=== PATIENT | male | born 1970 | race Caucasian/White ===

== ENCOUNTER 2019-09-25 21:55 | Emergency (ER) | payer OTHER ==
[~2019-09-25] VITALS: Ht 170.2 cm; Wt 104.3 kg
--- NOTE | 2019-09-25 22:08 | NUR ---
PT AAOX4. REBEKAH FROM [facility] FOR GLF. PT KHMER SPEAKING C/O LEFT KNEE PAIN DENIES ANY LOC. NO ACUTE DISTRESS NOTED. PT VOMITTED FOOT GATHERER. MD AT BEDSIDE FOR EVAL. AWAITING ORDERS.
--- NOTE | 2019-09-25 22:14 | NUR ---
BG 116 MD AWARE.
[2019-09-25] MEDS ORDERED: IBUPROFEN 400 MG TABLET ONE (22:32)
[2019-09-25] MEDS: IBUPROFEN 400 MG TABLET PO ONE (22:34)
--- NOTE | 2019-09-25 22:47 | NUR ---
Patient is resting comfortably in bed. Easily aroused. VSS.
--- NOTE | 2019-09-25 22:57 | NUR ---
CALLED [id number] FOR TX OF 30MINS REF#[id number]
--- NOTE | 2019-09-25 23:45 | NUR ---
[facility] 0030
--- NOTE | 2019-09-26 00:43 | NUR ---
REPORT GIVEN TO [facility] FOR TRANSPORTATION NARESH
--- NOTE | 2019-09-26 00:45 | NUR ---
SPOKE WITH FRANCESCO CAVANAUGH FOR [facility] AND INFORMED PT IS RETURNING TO FACILITY. VERBALIZED UNDERSTANDING. PT TRANSFERRED TO [facility] IN STABLE CONDITION
[2019-09-26 01:06] VITALS: BP 127/90
[2019-09-26] MEDS ORDERED: PYRI-6 PO (17:19)
[2019-09-26] MEDS ORDERED: BENA20TA9 PO (17:19)
[2019-09-26] MEDS ORDERED: ATOR20TA PO (17:19)
[2019-09-26] MEDS ORDERED: ERTU15TA PO (17:19)
[2019-09-26] MEDS ORDERED: METF-441 PO (17:19)
[2019-09-26] MEDS ORDERED: ASPI-1152 PO (17:19)
[2019-09-26] MEDS ORDERED: CYAN500T65 PO (17:19)
[2019-09-26] MEDS ORDERED: DULA0.75 SQ (17:19)
[2019-09-26] MEDS ORDERED: GLAT40SY3 SQ (17:19)
[2019-09-26] MEDS ORDERED: ERGO500014 PO (17:19)
[2019-09-26] MEDS ORDERED: ACET-73 PO (17:19)
[2019-09-26] MEDS ORDERED: TRAZ-182 PO (17:19)
== END 2019-09-26 01:06 | disposition home or self-care (01) ==
LOC: ER 21:55
DX: S83.8X2A Sprain of other specified parts of left knee, initial encounter (principal); G35 Multiple sclerosis; I10 Essential (primary) hypertension; E78.5 Hyperlipidemia, unspecified; E11.9 Type 2 diabetes mellitus without complications; W18.31XA Fall on same level due to stepping on an object, initial encounter; Y93.01 Activity, walking, marching and hiking; Y92.89 Other specified places as the place of occurrence of the external cause; Y99.8 Other external cause status
CPT/HCPCS: 73564-TC; 82962-TC

== ENCOUNTER 2019-09-26 16:35 | Inpatient (IN) | payer OTHER ==
[~2019-09-26] VITALS: Ht 172.7 cm; Wt 100.7 kg
--- NOTE | 2019-09-26 17:00 | NUR ---
PT TOSHIA MARTÍNEZ FRSilvina [facility] TO ER BED 18. PER EMS REPORT PT WAS SENT HERE FOR FREQUENT FALLS AND ALTERED MENTAL STATUS AND DR MELÉNDEZ WANTS HIM TO BE ADMITTED. PT APPEARS LETHARGIC ASSET MANAGEMENT COORDINATOR. VOMITTER X 1 WHILE BEING TRANFERED. GOWNED AND PLACE ON MONITOR. TACHY ASSET MANAGEMENT COORDINATOR. AFEBRILE. AWAITING MD MCKEON.
[2019-09-26] MEDS ORDERED: PYRI-6 PO (17:19)
[2019-09-26] MEDS ORDERED: BENA20TA9 PO (17:19)
[2019-09-26] MEDS ORDERED: GLAT40SY3 SQ (17:19)
[2019-09-26] MEDS ORDERED: DULA0.75 SQ (17:19)
[2019-09-26] MEDS ORDERED: METF-441 PO (17:19)
[2019-09-26] MEDS ORDERED: ASPI-1152 PO (17:19)
[2019-09-26] MEDS ORDERED: ERTU15TA PO (17:19)
[2019-09-26] MEDS ORDERED: ATOR20TA PO (17:19)
[2019-09-26] MEDS ORDERED: TRAZ-182 PO (17:19)
[2019-09-26] MEDS ORDERED: CYAN500T65 PO (17:19)
[2019-09-26] MEDS ORDERED: ERGO500014 PO (17:19)
[2019-09-26] MEDS ORDERED: ACET-73 PO (17:19)
--- NOTE | 2019-09-26 17:35 | NUR ---
DR ENRIQUEZ AT BEDSIDE FOR EVAL.
[2019-09-26] MEDS ORDERED: ONDANSETRON HCL/PF 4 MG/2 ML VIAL ONE (17:37)
--- NOTE | 2019-09-26 17:41 | NUR ---
IV LINE STARTED BLOOD DRAWN AND SENT TO LAB.
--- NOTE | 2019-09-26 17:55 | NUR ---
PT TO RADIOLOGY FOR HEAD CT SCAN VIA [facility].
[2019-09-26] MEDS ORDERED: IV NS 0.9% 1,000 ML BAG IV ONE ×2 (18:00→20:30)
[2019-09-26] MEDS ORDERED: ONDANSETRON HCL/PF 4 MG/2 ML VIAL IVP ONE (18:00)
[2019-09-26 18:21] LABS: BASOPHILS % (AUTO) 0.4 % (0.0-2.0); HEMATOCRIT 46 % (39-51); HEMOGLOBIN 15.3 g/dL (13.5-17.5); LYMPHOCYTES # (AUTO) 0.6 /CMM (0.8-4.8); LYMPHOCYTES % (AUTO) 6.3 % (20.0-44.0); MEAN CORPUSCULAR HGB CONC 33 g/dl (31.0-36.0); MEAN CORPUSCULAR VOLUME 94 fL (80-96); MONOCYTES # (AUTO) 0.6 /CMM (0.1-1.30); MONOCYTES % (AUTO) 6.5 % (2.0-12.0); NEUTROPHILS # (AUTO) 8.1 /CMM (1.8-8.9); NEUTROPHILS % (AUTO) 86.8 % (43.0-81.0); PLATELET COUNT (AUTO) 247 /CMM (150-450); WHITE BLOOD COUNT (AUTO) 9.3 K/uL (4.3-11.0)
[2019-09-26 18:37] LABS: CARBON DIOXIDE 26 mmol/L (21-32); CHLORIDE 102 mmol/L (98-107); CREATININE 1.1 mg/dL (0.6-1.3); GLUCOSE 130 mg/dL (74-106); POTASSIUM 3.9 mmol/L (3.5-5.1); SODIUM SERUM 138 mmol/L (136-145); UREA NITROGEN, BLOOD 16 mg/dL (7-18)
[2019-09-26 18:38] LABS: CALCIUM, SERUM 8.6 mg/dL (8.5-10.1)
[2019-09-26 18:42] LABS: ALANINE AMINOTRANSFERASE 57 U/L (12-78); ALBUMIN 4.2 g/dL (3.4-5.0); ALKALINE PHOSPHATASE 92 U/L (46-116); ASPARTATE AMINOTRANSFERASE 30 U/L (15-37); BILIRUBIN,DIRECT 0.1 mg/dL (0.0-0.2); BILIRUBIN,TOTAL 0.3 mg/dL (0.2-1.0); TOTAL PROTEIN, SERUM 8.5 g/dL (6.4-8.2)
[2019-09-26 18:56] LABS: SERUM AMMONIA 13 umol/L (11-32)
[2019-09-26 18:59] LABS: THYROID STIMULATING HORMONE 0.643 uIU/mL (0.358-3.74)
--- NOTE | 2019-09-26 19:05 | NUR ---
TOOK OVER PT CARE. PT AAOX4. (NAME, , YEAR, AND PRESIDENT.) PT WAS SEEN AT THE E.D YESTERDAY FOR L KNEE PAIN S/P FALLING. UPON REPORT PT WAS BROUGHT HERE FOR FREQUENT FALLS AND ALTERED MENTAL STATUS. PT PLACED ON MONITOR AND PULSE OX. PT SLIGHTLY TACHY 109-115. VITALS STABLE. SAT 96% ON ROOM AIR. PT DENIES ANY PAIN. PROVIDED WITH BLANKET. PT NOW RESTING COMFORTABLY. NO ACUTE DISTRESS NOTED.
[2019-09-26 19:27] LABS: APPEARANCE,URINE Clear (CLEAR); BILIRUBIN,URINE Negative (NEGATIVE); BLOOD, URINE Trace-intact Ery/uL (NEGATIVE); COLOR,URINE Yellow (YELLOW); KETONES,URINE 40 (NEGATIVE); LEUKOCYTE ESTERASE ,URINE Negative (NEGATIVE); NITRITE, URINE Negative (NEGATIVE); PH,URINE 6.5 (5.0-8.0); PROTEIN,URINE 30 mg/dl (NEGATIVE); UGLUCOSE 500 MG/DL mg/dL (NEGATIVE); UROBILINOGEN,URINE 0.2 EU/dL (0.2)
[2019-09-26 19:31] LABS: BACTERIA,URINE Few /HPF (None Seen); WBC,URINE 0-2 /HPF (0-3)
[2019-09-26 19:37] LABS: ACETAMINOPHEN < 10 ug/ml (10-30); ALCOHOL, BLOOD < 3 mg/dL (0-0); SALICYLATE 0.8 mg/dL (2.8-20.0)
--- NOTE | 2019-09-26 19:47 | NUR ---
PT RESTING COMFORTABLY.
--- NOTE | 2019-09-26 19:58 | NUR ---
TURNER SENT TO LAB
--- NOTE | 2019-09-26 20:05 | NUR ---
DR. ENRIQUEZ SPEAKING WITH DR. MELÉNDEZ DURAL MECHANIC
--- NOTE | 2019-09-26 20:22 | NUR ---
CHECKED TEMP 101.1, MD AWARE. ORDERED 1G TYLENOL +1L NS
[2019-09-26] MEDS ORDERED: ACETAMINOPHEN ES 500 MG TABLET ONE (20:24)
[2019-09-26] MEDS ORDERED: ACETAMINOPHEN ES 500 MG TABLET PO ONE (20:30)
--- NOTE | 2019-09-26 20:31 | NUR ---
REC'D COVID POS RESULTS. AWARE
--- NOTE | 2019-09-26 20:33 | NUR ---
PT MEDICATED/ RESTING IN BED COMFORTABLY.
--- NOTE | 2019-09-26 20:48 | NUR ---
PER MD, WILL ORDER CTA BRAIN. ONCE RULLED OUT, WILL BE ADMITTED.
[2019-09-26] MEDS ORDERED: IOHEXOL-350 100 ML VIAL IV ONE ×2 (20:59→21:19)
--- NOTE | 2019-09-26 21:08 | NUR ---
CALLED RADIOLOGY TO TAKE PT TO CT
--- NOTE | 2019-09-26 21:13 | NUR ---
PT BRROUGHT TO CT
--- NOTE | 2019-09-26 21:14 | NUR ---
BED ASSIGNMENT 117
--- NOTE | 2019-09-26 21:41 | NUR ---
BROUGHT BACK FROM CT. PLACED ON COIL BINDER AND PULSE OX. VSS. NO ACUTE DISTRESS NOTED. PT PROVIDED WITH BLANKET.
--- NOTE | 2019-09-26 23:26 | NUR ---
PT TRANSFERED PER [facility]
[2019-09-27] VITALS: BP 106/70
--- NOTE | 2019-09-27 03:11 | NUR ---
RN notes Admitted a 48 yr old male patient from ER with diagnosis of AMS. Alert and oriented. No confusion or disorientation as of this time. Able to verbalize needs. Brought in via stretcher by 2 ER staff in stable condition. In no apparent distress, breathing even and unlabored. Room air tolerating well. No complaint of pain as of this time. Called Dr. Blackburn regarding Medication orders, spoke with data control assistant Dr. Pope, and ordered to continue home meds and to get amonia level in am. She also said that doctor Alexey will be here this morning and will see the patient. Patient resting comfortably in bed. Copy of home meds sent to pharmacy. Needs attended. Will continue to monitor.
[2019-09-27 04:00] VITALS: BP 112/69
--- NOTE | 2019-09-27 07:20 | NUR ---
RN OPENING NOTE: Received patient in bed. Awake, alert and oriented x4. Able to make needs known. Isolation precaution for COVID-[address]. Currently on room air, per patient preference, with saturation @ 93% noted. Use of oxygen reinforced and standby o2 at bedside. Tele monitor showing sinus tachycardia @ 104. No pain noted nor reported by patient. IV site clean, dry, patent and intact. Call light in reach. Bed locked, low and at semi-rogers's position. Side rails up x3. Safety ensured and obsreved. Will continue to monitor.
--- NOTE | 2019-09-27 07:36 | NUR ---
RN notes No significant change of condition, patient resting comfortably in bed with no complaint of pain or discomfort. Endorsed to next shift the need to talk to Dr. Blackburn regarding his admitting diagnosis and diet. Endorsed for continuity of care.
[2019-09-27 08:00] VITALS: BP 119/77
--- NOTE | 2019-09-27 11:08 | NUR ---
RN note: Dr. Blackburn consulted patient via tele medicine. New orders noted and carried out. Patient's med recon done with Dr. Blackburn. Form was faxed to pharmacy and confirmed to be received.
[2019-09-27 12:00] VITALS: BP 127/77
[2019-09-27] MEDS ORDERED: GLATIRAMER 40 MG SQ SCH (12:30)
--- NOTE | 2019-09-27 12:38 | NUR ---
RN NOTE: STEGLATRO AND GALATIMER ACETATE NOT AVAILABLE IN FORMULARY PER PHARMACY. PER DR. MELÉNDEZ, HOLD MEDICATIONS. ORDER NOTED AND CARRIED OUT. PHARMACY INFORMED
[2019-09-27 16:00] VITALS: BP 104/65
[2019-09-27] MEDS: METFORMIN 850 MG TABLET PO SCH (16:56)
--- NOTE | 2019-09-27 19:01 | NUR ---
RN CLOSING NOTE: Patient remains in bed. Awake, alert and oriented x4. Able to make needs known. Isolation precaution for COVID-[address] Currently on room air, per patient preference, with saturation @ 93% noted. Use of oxygen was reinforced and standby o2 at bedside, Dr. Blackburn is aware. Tele monitor showing sinus rhythm @ 80s. No pain noted nor reported by patient. IV site clean, dry, patent and intact. Call light in reach. Bed locked, low and at semi-rogers's position. Side rails up x3. Safety ensured and obsreved. Due medications given. Needs attended to. Treatment given as ordered. Will endorse to oncoming shift for NARESH.
--- NOTE | 2019-09-27 19:48 | NUR ---
RN OPENING NOTE PT RECEIVED IN BED. PT IS A/A/O X3. PT IS ON RA SATING 94%. NO S/S OF RESPIRATORY DISTRESS NOTED. PT HAS UNLABORED BREATHING. TELE MONITORING SHOWING ST AT 103.PT HAS IV ACCESS LAC 18 G S/L INTACT AND PATENT. SAFETY MEASURES IN PLACE. BED AT LOWEST POSITION, LOCKED, SIDE RAILS UP X2, CALL LIGHT IN REACH, HOB ELEVATED. WILL CONTINUE TO MONITOR
[2019-09-27 20:00] VITALS: BP 127/71
[2019-09-27] MEDS: TRAZODONE 50 MG TABLET PO SCH (21:25)
[2019-09-27] MEDS: ENOXAPARIN SODIUM 40 MG/0.4 ML DISP.SYRIN SQ SCH (21:25)
[2019-09-27] MEDS: ATORVASTATIN 40 MG TABLET PO SCH (21:25)
[2019-09-27] MEDS: ACETAMINOPHEN ES 500 MG TABLET PO PRN (23:58)
[2019-09-28] VITALS (7 sets, daily range): BP systolic 104–132; BP diastolic 63–93
--- NOTE | 2019-09-28 01:00 | NUR ---
RN NOTE TYLENOL GIVEN FOR ZRS024.7 WITH ICE PACKS, TEMP RECHECKED IT IS 99.3.
[2019-09-28] MEDS: ACETAMINOPHEN ES 500 MG TABLET PO PRN ×2 (04:02→19:50)
--- NOTE | 2019-09-28 07:14 | NUR ---
RN CLOSING NOTE PT IS IN STABLE CONDITION. NO ACUTE CHANGES DURING MY SHIFT. ENDORSED TO INCOMING SHIFT FOR NARESH.
--- NOTE | 2019-09-28 07:43 | NUR ---
RN NOTES RECEIVED PATIENT IN BED RESTING COMFORTABLY IN MODERATE HIGH BACK REST. A/O X3. ON RA WITH NO SIGNS SOB. NO S/S OF DISTRESS NOTED AT THIS TIME. ON TELE MONITORING WITH CURRENT READING OF SR WITH HR OF 90'S. IV ACCESS LAC 18 G S/L INTACT AND PATENT. SAFETY MEASURES IN PLACE. BED AT LOWEST POSITION, LOCKED, SIDE RAILS UP X2, CALL LIGHT IN REACH. WILL CONTINUE TO MONITOR.
[2019-09-28] MEDS: METFORMIN 850 MG TABLET PO SCH ×2 (08:18→16:20)
[2019-09-28] MEDS: PYRIDOXINE HCL 50 MG TABLET PO SCH (08:18)
[2019-09-28] MEDS: CYANOCOBALAMIN 500 MCG TABLET PO SCH (08:18)
[2019-09-28] MEDS: ASPIRIN EC 81 MG TABLET.DR PO SCH (08:19)
[2019-09-28] MEDS: BENAZEPRIL HCL 20 MG TABLET PO SCH (08:19)
--- NOTE | 2019-09-28 18:32 | NUR ---
RN NOTES PATIENT IN BED RESTING COMFORTABLY IN MODERATE HIGH BACK REST. A/O X3. ON RA WITH NO SIGNS SOB. NO S/S OF DISTRESS NOTED THROUGHOUT THE SHIFT. ON TELE MONITORING WITH CURRENT READING OF ST WITH HR OF 105. IV ACCESS LAC 18 G S/L INTACT AND PATENT. SAFETY MEASURES IN PLACE. BED AT LOWEST POSITION, LOCKED, SIDE RAILS UP X2, CALL LIGHT IN REACH. WILL ENDORSE TO GENERAL INTERNAL MEDICINE PHYSICIAN NURSE FOR NARESH.
--- NOTE | 2019-09-28 19:27 | NUR ---
TELE/RN OPENING NOTES RECEIVED PATIENT IN BED, RESPIRATIONS EVEN AND UNLABORED, PATIENT WAS ASSISTED TO STAY COMFORTABLY IN BED, KEPT SKIN INTACT AND DRY, LEFT AC HEP LOCK PATENT, PATIENT WITH NO S/S OF BEHAVIOR ESCALATION BUT A LITTLE JITTERY AND REQUIRE QUIET SURROUNDING, MONITORED FOR SAFETY. VITAL SIGNS CHECK IN THE RIGHT ARM WITH SOME ELEVATED FEVER OF 100.6. R- 20. B/P 122/75 , PULSE RATE AT 110 AND OXYGENATION IN ROOM AIR AT 94%/WILL MONITOR.
--- NOTE | 2019-09-28 19:47 | NUR ---
TELE/RN NOTES PROVIDED COOLING MEASURES, KEPT COMFORTABLE, APPLE ICE PACK AND REMOVE BLANKET AND SOCKS. TO RECEHECK TEMPERATURE,
--- NOTE | 2019-09-28 19:52 | NUR ---
TELE/RN NOTES TYLRNOL ES 500 MG PO GIVEN FOR ELEVATED FEVER OVER 100, KEEP ROOM COOL. TO MONITOR.
--- NOTE | 2019-09-28 20:03 | NUR ---
SITTER ORDER FOR PATIENT CONFUSION AND AT RISK FOR FALL DUE TO WEAKNESS AND MENTAL ILLNESS, WITH OLD HX OF KNEE INJURY, MULTIPLE SCLEROSIS, FREQUENT FALL, GAIT INSTABILITY, OBSERVED BY PREVIOUS SHIFT GETTING OUT OF BED AND REQUIRE FREQUENT REORIENTATION.
[2019-09-28] MEDS: ENOXAPARIN SODIUM 40 MG/0.4 ML DISP.SYRIN SQ SCH (20:17)
--- NOTE | 2019-09-28 20:21 | NUR ---
TELE/RN NOTES PATIENT WATCHING TV AND PROVIDED SOME JUICE AND FLUIDS ABLE TO TOLERATE WITH NO DIFFICULTY.
[2019-09-28] MEDS: TRAZODONE 50 MG TABLET PO SCH (21:12)
[2019-09-28] MEDS: ATORVASTATIN 40 MG TABLET PO SCH (21:13)
--- NOTE | 2019-09-28 21:20 | NUR ---
TELE/RN NOTES PATIENT ALERT X1, ABLE TO COOPERATE WITH MEDICATION MANAGEMENT OBSERVED REMOVING TELE MONITOR AND REQUIRE REORIENTATION PATIENT UNABLE TO PROVIDE PROPER EDUCATION DUE TO DISORIENTATION AND INCOHERENT.
--- NOTE | 2019-09-28 22:16 | NUR ---
TELE/RN NOTES PATIENT PROVIDED SPONGE BATH, ABKE TO TURN AND REPOSITION SELF WITH ASSISTANCE. COOPERATIVE AND ABLE TO PARTICIPATE WITH CARE.
--- NOTE | 2019-09-28 23:07 | NUR ---
TELE/RN NOTES BODY TEMPERATURE RECHECKED AT 98 DEG F.
[2019-09-29] VITALS: BP 115/76
--- NOTE | 2019-09-29 00:07 | NUR ---
TELE/RN NOTES PATIENT IN BED, ASLEEP, MONITORED FOR ANY CHANGES.R
--- NOTE | 2019-09-29 01:53 | NUR ---
TELE/RN NOTES PATIENT AWAKEN FROM SLEEP MOVING LEGS AND HAND, HAD VOIDED AND HYGIENE CARE PROVIDED, KEPT SKIN INTACT AND DRY.MONITORED AND KEEP COMFORTABLE.
[2019-09-29] MEDS: ACETAMINOPHEN ES 500 MG TABLET PO PRN ×2 (03:31→17:01)
--- NOTE | 2019-09-29 03:32 | NUR ---
TELE/RN NOTES PATIENT ASSISTED TO CHANGE, INCONTINENT AND REQUIRE ASSISTANCE TO KEEP SKIN INTACT AND DRY, WITH TEMPERATURE CHECK AT 99.9 DEG F, NEEDED ACETAMINOPHEN . TO MONITOR.
[2019-09-29 04:00] VITALS: BP 127/74
--- NOTE | 2019-09-29 06:48 | NUR ---
TELE/RN CLOSING NOTES PATIENT ABLE TO SLEEP FEW HOURS , INCOHERENT AND DISORIENTED BUT ABLE TO COOPERATE, RESPIRATIONS EVEN AND UNLABORED, SKIN WARM TO TOUCH, MONITORED FOR ANY CHANGES AND FALL PREVENTIVE MEASURES PATIENT UNABLE TO VERBALIZE NEEDS AND WITH ORDER TO HAVE SITTER TO BE MONITORED FOR HIS SAFETY, KEPT SKIN INTACT AND DRY WITH REPOSITIONING AND OFF LOADING, ABLE TO VOID BUT WITH NO BM , PROVIDED AND OFFERED FLUIDS TO DRINK. BED LOCKED, CALL LIGHTS WITHIN REACH. WILL ENDORSE TO AM RN FOR NARESH.
--- NOTE | 2019-09-29 07:30 | NUR ---
RN NOTES RECEIVED PATIENT IN BED RESTING. RESPONSIVE. A/OX1-2, CONFUSED. NOT IN ANY FORM OF DISTRESS. NO SOB. DENIED PAIN OR DISCOMFORT AT THIS TIME. IV ACCESS INTACT AND PATENT. ON 1 SITTER. KEPT PATEINT SAFE AND COMFORTABLE. BED IN LOW/LOCKED POSIITON, SIDERAILS UPX2, CALL LIGHT IN REACH. WILL CONT TO MONIOTR ACCORDINGLY.
[2019-09-29 08:00] VITALS: BP 111/74
[2019-09-29] MEDS: CYANOCOBALAMIN 500 MCG TABLET PO SCH (09:02)
[2019-09-29] MEDS: ASPIRIN EC 81 MG TABLET.DR PO SCH (09:02)
[2019-09-29] MEDS: METFORMIN 850 MG TABLET PO SCH ×2 (09:02→17:01)
[2019-09-29] MEDS: PYRIDOXINE HCL 50 MG TABLET PO SCH (09:02)
[2019-09-29] MEDS: BENAZEPRIL HCL 20 MG TABLET PO SCH (09:03)
[2019-09-29 12:00] VITALS: BP 133/76
[2019-09-29 16:30] VITALS: BP 135/76
--- NOTE | 2019-09-29 17:01 | NUR ---
rn notes temp 101.5. tylenol 500mg given as ordered. cooling measures done. will moniotr accordingly
--- NOTE | 2019-09-29 18:43 | NUR ---
TEMP= 99.9. will monitor accordingly.
--- NOTE | 2019-09-29 18:44 | NUR ---
RN CLOSING NOTES PATIENT IN STABLE CONDITION. ALL DUE MEDS GIVEN ORDERED. ASSISTED WITH ADLS. KEPT PATIENT SAFE AND COMFORTABLE. BED IN LOW/LOCKED POSITION, SIDERAILS UPX2, CALL LIGHT IN REACH. BED ALARM ON. WILL ENDORSE ACCORDINGLY.
--- NOTE | 2019-09-29 19:15 | NUR ---
FURNITURE REPAIRER NOTES RECEIVED PT IN BED AWAKE AND ABLE TO MAKE NEEDS KNOWN. PT A/O X1-2 SWEDISH SPEAKING. RESPIRATIONS EVEN AND UNLABORED WITH NO S/S OF ACUTE DISTRESS OR SOB NOTED. PT NOTED WITH LAC #18G PATENT AND INTACT. NO COMPLAINTS OF PAIN AT THIS TIME. SAFETY MEASURES IN PLACE WITH BED IN LOWEST LOCKED POSITION WITH SIDE RAILS UP X2. CALL LIGHT WITHIN REACH. WILL CONTINUE TO MONITOR.
[2019-09-29 20:00] VITALS: BP_SYST 120; BP_SYST 138; BP_DIAS 71; BP_DIAS 80
[2019-09-29] MEDS: ENOXAPARIN SODIUM 40 MG/0.4 ML DISP.SYRIN SQ SCH (21:03)
[2019-09-29] MEDS: TRAZODONE 50 MG TABLET PO SCH (21:03)
[2019-09-29] MEDS: ATORVASTATIN 40 MG TABLET PO SCH (21:03)
[2019-09-30] VITALS: BP_SYST 101; BP_SYST 137; BP_DIAS 53; BP_DIAS 82
[2019-09-30 04:00] VITALS: BP_SYST 131; BP_SYST 142; BP_DIAS 61; BP_DIAS 80
--- NOTE | 2019-09-30 07:36 | NUR ---
MONUMENT INSTALLER NOTES PT IN BED AWAKE AND ABLE TO MAKE NEEDS KNOWN. PT A/O X1-2 INDONESIAN SPEAKING. RESPIRATIONS EVEN AND UNLABORED WITH NO S/S OF ACUTE DISTRESS OR SOB NOTED THROUGHOUT SHIFT. PT NOTED WITH LAC #18G PATENT AND INTACT. NO COMPLAINTS OF PAIN AT THIS TIME. SAFETY MEASURES IN PLACE WITH BED IN LOWEST LOCKED POSITION WITH SIDE RAILS UP X2. CALL LIGHT WITHIN REACH. WILL ENDORSE TO ONCOMING NURSE FOR NARESH.
[2019-09-30 08:00] VITALS: BP 133/84
--- NOTE | 2019-09-30 08:00 | NUR ---
FUR GLAZER NOTE PT RECEIVED IN BED, LITHUANIAN SPEAKING WITH SOME TAJIK, ON TELE MONITORING AT THIS TIME HR 105, ABLE TO EAT BREAKFAST WELL LEFT AC INTACT AND FLUSHED WELL, BED IN LOWEST AND LOCKED POSITION, SAFETY MEASURES OBSERVED, CALL LIGHT WITHIN REACH, PLAN OF CARE DISCUSSED WITH PT, PRN TYLENOL GIVEN AND WILL MONITOR
[2019-09-30] MEDS: ASPIRIN EC 81 MG TABLET.DR PO SCH (08:37)
[2019-09-30] MEDS: METFORMIN 850 MG TABLET PO SCH ×2 (08:37→16:24)
[2019-09-30] MEDS: CYANOCOBALAMIN 500 MCG TABLET PO SCH (08:37)
[2019-09-30] MEDS: BENAZEPRIL HCL 20 MG TABLET PO SCH (08:37)
[2019-09-30] MEDS: ACETAMINOPHEN ES 500 MG TABLET PO PRN (08:41)
[2019-09-30] MEDS ORDERED: ERGOCALCIFEROL (VITAMIN D 2) 50,000 UNIT CAPSULE PO SCH (09:00)
[2019-09-30 12:00] VITALS: BP 112/61
--- NOTE | 2019-09-30 12:11 | NUR ---
PARACHUTE MANUFACTURING SUPERVISOR NOTE ROUNDS MADE ,HAVING LUNCH ,NOT IN DISTRESS ,WILL MONITOR
[2019-09-30 16:00] VITALS: BP 109/69
--- NOTE | 2019-09-30 18:38 | NUR ---
LAUNDRY PRESSER CLOSING NOTE PT IN BED, ON 2 L 02 SATURATION 95%, NO SOB, NO DISTRESS, ALL NEEDS MET, ABLE TO EAT BY HIMSELF, PT KEPT DRY CLEAN, WILL MONITOR
--- NOTE | 2019-09-30 19:15 | NUR ---
RN OPENING NOTES Received patient awake on bed. On O2 via NC 2 2LPM, no respiratory distress noted. Pt denies any discomfort at this time. On telemonitor with sinus tach noted 106. Reinforced fall precautions, pt verbalized understanding. Call light within easy reach. Will continue to monitor accordingly.
[2019-09-30 20:00] VITALS: BP 112/63
[2019-09-30] MEDS: TRAZODONE 50 MG TABLET PO SCH (21:06)
[2019-09-30] MEDS: ATORVASTATIN 40 MG TABLET PO SCH (21:06)
[2019-09-30] MEDS: ENOXAPARIN SODIUM 40 MG/0.4 ML DISP.SYRIN SQ SCH (21:07)
[2019-10-01] VITALS (7 sets, daily range): BP systolic 110–141; BP diastolic 58–92
[2019-10-01] MEDS: ACETAMINOPHEN ES 500 MG TABLET PO PRN ×2 (00:50→19:14)
--- NOTE | 2019-10-01 00:52 | NUR ---
RN NOTES Pt on bed asleep comfortably. Endorsed to FRANCESCO Desir for NARESH.
--- NOTE | 2019-10-01 01:00 | NUR ---
QUARTZ MOUNTER NOTES, RECEIVED PATIENT FROM FRANCESCO RODRIGUES FOR CONTINUATION OF CARE, PATIENT WITH BODY TEMP 100.2, TYLENOL ADMINISTERED ORDERED, NO ADDITIONAL SYMPTOMS NOTED/REPORTED BY PATIENT .
--- NOTE | 2019-10-01 04:00 | NUR ---
AKSHAT RN NOTES' GAVE REPORT TO TRISHA FOR DC TO [facility].
--- NOTE | 2019-10-01 06:33 | NUR ---
RN CLOSING NOTES, PATIENT IN BED SLEEPING AT THIS TIME, NO SOB/ACUTE DISTRESS NOTED, AT ROOM AIR SATURATING >96%, NOTED WITH ELEVATED BODY TEMP LAST NIGHT, TYLENOL GIVEN, OTHERWISE NO SIGNIFICANT CHANGE IN CONDITION DURING THE NIGHT, SAFETY MEASURES IN PLACED , BED LOCKED AND LOWEST POSITION, SIDE RAILS UP X 2 , CALL LIGHT WITHIN REACH. WILL ENDORSE CONTINUITY OF CARE TO ONCOMING NURSE.
--- NOTE | 2019-10-01 08:10 | NUR ---
AKSHAT RN OPENING NOTE PT RECEIVED IN BED. PT IS A/A/O X3. PT IS ON RA SATING 94%. NO S/S OF RESPIRATORY DISTRESS NOTED. PT HAS UNLABORED BREATHING. TELE MONITORING SHOWING ST AT 101.PT HAS IV ACCESS LAC 18 G S/L INTACT AND WELL FLUSHED. SAFETY MEASURES IN PLACE. BED AT LOWEST POSITION, LOCKED, SIDE RAILS UP X2, CALL LIGHT IN REACH, HOB ELEVATED. WILL CONTINUE TO MONITOR
--- NOTE | 2019-10-01 08:44 | NUR ---
CM NOTIFIED REGrding d/c order ,awaits transport.primary rn notified
[2019-10-01] MEDS: CYANOCOBALAMIN 500 MCG TABLET PO SCH (09:22)
[2019-10-01] MEDS: ASPIRIN EC 81 MG TABLET.DR PO SCH (09:22)
[2019-10-01] MEDS: METFORMIN 850 MG TABLET PO SCH ×2 (09:22→17:31)
[2019-10-01] MEDS: BENAZEPRIL HCL 20 MG TABLET PO SCH (09:22)
--- NOTE | 2019-10-01 10:01 | NUR ---
follow-up discharge status w/ cm per betsy still pending authorization from insurance.will continue to followup.
--- NOTE | 2019-10-01 18:15 | NUR ---
AKSHAT RN CLOSING NOTES, PATIENT IS IN BED RESTING AT THIS TIME, NO SOB/ACUTE DISTRESS NOTED, AT ROOM AIR SATURATING >96%, NO SIGNIFICANT CHANGE IN CONDITION DURING THE MY SHIFT, SAFETY MEASURES IN PLACED , BED LOCKED AND LOWEST POSITION, SIDE RAILS UP X 2 , CALL LIGHT WITHIN REACH. GAVE REPORT TO TRISHA TO [facility] AND DC IV AND READY TO GO WAITING FOR AMBULANCE TO PICK HIM UP AND TO TRANSFORM. ALL PT NEEDS ARE MET AND MEDS ARE GIVEN. DC INSTRUCTIONS ARE READY AND SIGNED.WILL INFORM THE MARITIME OFFICER.
--- NOTE | 2019-10-01 18:28 | NUR ---
AWAITS [facility] PER WILLIAM CM LATE,WILL CONTINUE TO FOLLOWUP.
== END 2019-10-01 19:24 | DRG 137 ==
LOC: ER 16:39 → TELE1 21:51
PROVIDERS: ADMIT Internal Medicine; ATTEND Internal Medicine
DX: U07.1 COVID-19 (principal); G93.49 Other encephalopathy; R53.1 Weakness; R26.9 Unspecified abnormalities of gait and mobility; E11.9 Type 2 diabetes mellitus without complications; I10 Essential (primary) hypertension; Z86.73 Personal history of transient ischemic attack (TIA), and cerebral infarction without residual deficits; R09.02 Hypoxemia; J12.89 Other viral pneumonia; R29.6 Repeated falls; E03.9 Hypothyroidism, unspecified; R63.0 Anorexia; R63.4 Abnormal weight loss; Z68.33 Body mass index [BMI] 33.0-33.9, adult; G35 Multiple sclerosis; Z86.15 Personal history of latent tuberculosis infection; E66.9 Obesity, unspecified
CPT/HCPCS: 36415; 70450-TC; 70496-TC; 71045-TC; 72125-TC; 80048-TC; 80076-TC; 80305; 81000-TC; 82140-TC; 82962-TC; 83605-TC; 84443-TC; 84484-TC; 85025-TC; 85730-TC; 87040-TC; 87081-TC; 87086-TC; 97110-TC; 97116-TC; 97530-TC; 97535-TC; G0378; G0480; J1650; J2405; J7030; Q9967